=== PATIENT | male | born 1965 | race Caucasian/White ===

== ENCOUNTER 2022-01-14 00:16 | Day surgery (SDC) | payer BC, SELFPAY ==
[2022-01-06 09:35] VITALS: BMI 28.8
[2022-01-14 07:52] VITALS: BP 94/62; PULSE 49; RESP 16; TEMP 35.7; O2SAT 100; BMI 28.8
[2022-01-14] MEDS: LACTATED RINGERS 1,000 ML 150 ML IV CONT (08:00)
--- NOTE | 2022-01-14 08:07 | WPDANESEPPF ---
Anes - Initial Pre Proc Eval Procedure: Operation Date: 01/14/22 09:00 Proposed Procedures p Screening Colonoscopy - Kip Uribe MD Date/Time: 01/14/22 08:07 Surgeon: Kip Uribe MD Pre Op Diagnosis: family hx colon ca, hx colon polyps, neoplasm Patient Data Age: 56 Gender: M Height: 1.78 m Weight: 91 kg Last Vital Signs Temp 96.3 F L 01/14/22 07:52 Pulse 49 L 01/14/22 07:52 Resp 16 01/14/22 07:52 BP 94/62 L 01/14/22 07:52 Pulse Ox 100 01/14/22 07:52 Allergies Allergy/AdvReac Type Severity Reaction Status Date / Time No Known Allergies Allergy Verified 01/06/22 09:50 Home Medications Medication Instructions Recorded Confirmed Type No Home Medications 01/06/22 01/06/22 History Patient hx anesthesia problems: none Family hx anesthesia problems: none Results Review: All pre-operative results and documents have been reviewed as part of the pre-operative evaluation. [facility] Social History Social History Smoking status: Never smoker Alcohol intake: never Substance use: never Living arrangements: with family Spiritual care concerns: No Anes - Eval Final PreProcedure Day of Procedure 01/14/22 08:07 Patient weight: normal Heart: regular rate and rhythm Lungs: clear to auscultation Airway: Mallampati scale class II Neurological: alert and oriented Last oral intake: >/= 8 hours ASA classification: II Emergent: no Anesthetic plan: proceed Anesthesia type and monitoring: general GIVS and standard monitoring Results Review: All pre-operative results and documents have been reviewed as part of the pre-operative evaluation. Informed Consent: The patient's anesthetic plan and its attendant risks and benefits were discussed with the patient/family/POA. Questions were solicited and answers provided to the satisfaction of the patient/family/POA.
--- NOTE | 2022-01-14 08:16 | PM.HPGS ---
History of Present Illness History of Present Illness Consent: Risks, benefits, and alternatives have been discussed and questions answered. Patient agrees to proceed with procedure. Chief complaint: family hx colon ca, hx colon polyps, neoplasm Narrative: Rafaela Woodward is a 56 year old male with last colonoscopy 4-5 years ago, mother had colon cancer Review of Systems Constitutional: Constitutional: Denies headache(s) and Denies weakness Eyes: Eyes: Denies blurry vision ENT: Reports Normal hearing present, Denies headache(s) and Denies neck pain Cardiovascular: Cardiovascular: Denies chest pain and Denies dyspnea Respiratory: Respiratory: Denies dyspnea Gastrointestinal: Gastrointestinal: Reports no additional gastrointestinal complaints Genitourinary: Genitourinary: Denies dysuria Musculoskeletal: Musculoskeletal: Denies neck pain Integumentary/Breasts: Skin/Breast: Denies dry skin Neurologic: Reports Normal hearing present, Denies headache(s) and Denies weakness Psychiatric: Psychiatric: Denies anxiety Endocrine: Endocrine: Denies change in body appearance Hematologic/Lymphatic: Hematologic/Lymphatic: Denies easy bleeding Allergic/Immunologic: Allergic/Immunologic: Denies urticaria PMF Past Medical History Medical History (Updated 01/14/22 @ 08:17 by Kip Uribe MD) Family history of colon cancer in mother Social History Social History Smoking status: Never smoker Alcohol intake: never Substance use: never Living arrangements: with family Spiritual care concerns: No Meds Home Medications and Allergies Home Medications Medication Instructions Recorded Confirmed Type No Home Medications 01/06/22 01/06/22 History Allergies Allergy/AdvReac Type Severity Reaction Status Date / Time No Known Allergies Allergy Verified 01/06/22 09:50 Vital Signs Vital Signs - 24 hr 01/14/22 07:52 Temperature 96.3 F L Pulse Rate 49 L Respiratory Rate 16 Blood Pressure 94/62 L Pulse Oximetry 100 Exam Const: General: comfortable and no acute distress HENMT: General nose exam: Normal nares present Eyes: General: appearance normal, both eyes and all related structures Neck: Neck: no JVD Resp: Auscultation: clear to auscultation bilaterally Cardio: Rate: regular rate Rhythm: regular rhythm GI: Inspection: non-distended GI Palp: Yes Soft to palpation Skin: General skin exam: normal color Neuro: General: gait normal Speech: normal speech Extrem: General: normal to inspection Psych: Mental Status: mental status grossly normal Assessment and Plan Assessment and plan (1) Family history of colon cancer in mother: Code(s): Z80.0 - Family history of malignant neoplasm of digestive organs Status: Acute Assessment and Plan: colonoscopy
[2022-01-14 08:41] VITALS: BP 112/68; PULSE 52; RESP 12; O2SAT 97
[2022-01-14 08:51] VITALS: BP 108/81; PULSE 52; RESP 17; O2SAT 100
[2022-01-14 09:01] VITALS: BP 103/72; PULSE 50; RESP 17; O2SAT 100
== END 2022-01-14 09:12 | disposition home or self-care (01) ==
PROVIDERS: PCP Emergency Medicine; Visit Provider Internal Medicine Gastroenterology
PROC: 0DJD8ZZ Inspection of Lower Intestinal Tract, Via Natural or Artificial Opening Endoscopic (ICD-10-PCS; CPT 45378; principal; 2022-01-14 09:00)
DX: Z12.11 Encounter for screening for malignant neoplasm of colon (principal); D12.0 Benign neoplasm of cecum; D12.3 Benign neoplasm of transverse colon; Z80.0 Family history of malignant neoplasm of digestive organs; K64.8 Other hemorrhoids
CPT/HCPCS: 45385; 88305; J2704; J7120

== ENCOUNTER 2022-06-04 19:08 | Emergency (ER) | payer BC, SELFPAY ==
[2022-06-04 19:47] VITALS: BP 148/90; PULSE 60; RESP 16; TEMP 37; O2SAT 98
--- NOTE | 2022-06-04 19:50 | ED.WOUNDLAC ---
HPI - Wound/Laceration General Chief Complaint: Wound/Laceration Stated Complaint: middle left finger laceration Time Seen by Provider: 06/04/22 19:48 History of Present Illness HPI narrative: 56-year-old male presented emergency room for evaluation of laceration to his left middle finger. Patient states that he was using a mandolin and accidentally cut the backside of his middle finger. Tetanus is not up-to-date. Related Data Home Medications Medication Instructions Recorded Confirmed No Home Medications 01/06/22 01/06/22 Allergies Allergy/AdvReac Type Severity Reaction Status Date / Time No Known Allergies Allergy Verified 06/04/22 19:50 Review of Systems Review of Systems: CONSTITUTIONAL: Denies fever, chills, or sweats. EYES: Denies visual changes, redness, or discharge. ENT: Denies rhinorrhea, congestion, sore throat, or otalgia. CARDIOVASCULAR: Denies chest pain, palpitations, or edema. RESPIRATORY: Denies cough or dyspnea. GASTROINTESTINAL: Denies abdominal pain, nausea, vomiting, or diarrhea. GENITOURINARY: Denies dysuria or hematuria. SKIN: Reports laceration to left middle finger MUSCULOSKELETAL: Denies back pain, joint pain, or myalgia. NEUROLOGIC: Denies headache, numbness, dizziness, or weakness. PSYCHIATRIC: Denies anxiety or depression. [facility] Past Medical History Medical History Family history of colon cancer in mother Social History Social History Smoking status: Never smoker Alcohol intake: never Substance use: never Living arrangements: with family Spiritual care concerns: No Exam Narrative: GENERAL: Well-appearing, well-nourished, no physical limitations, and in no acute distress. HEAD: Normocephalic, atraumatic. EYES: Conjunctivae normal, PERRLA and EOMI. ENT: External nose normal, Nares clear, no rhinorrhea or epistaxis. Mucous membranes moist. Oropharynx without tonsillar hypertrophy exudate or other lesions. External ears normal, bilateral TMs normal bilaterally NECK: Supple. No meningeal signs. No adenopathy or masses. No carotid bruits or JVD CHEST: Clear to auscultation. No respiratory distress. No wheezes rales or rhonchi. No tenderness. HEART: Regular rate and rhythm. No murmur heard. Normal peripheral pulses. EXTREMITIES: Normal range of motion. No edema. No clubbing or cyanosis SKIN: Left middle finger: Small skin avulsion to the dorsal side of the middle phalanx left little finger. NEURO: No focal deficits. Alert and oriented x3. MAEW. CN's II-XI intact bilaterally, normal gait PSYCH: Cooperative. Normal mood and affect. Course Vital Signs Vital signs: Vital Signs Temperature 37.0 C 06/04/22 19:47 Pulse Rate 60 06/04/22 19:47 Respiratory Rate 16 06/04/22 19:47 Blood Pressure 148/90 H 06/04/22 19:47 Pulse Oximetry 98 06/04/22 19:47 Temperature 37.0 C 06/04/22 19:47 Pulse Rate 60 06/04/22 19:47 Respiratory Rate 16 06/04/22 19:47 Blood Pressure 148/90 H 06/04/22 19:47 Pulse Oximetry 98 06/04/22 19:47 Discharge Plan Discharge Clinical Impression: Avulsion of skin Patient Disposition: Home, Self-Care Condition: Stable Instructions: Antibiotic Form, Laceration (ED), Skin Avulsion (ED) Additional Instructions: Keep dressing on for 2 to 3 days. After that may wash your hands with soap and water. Avoid dirty water. Keep your wound clean and dry. Monitor for signs of infection which include redness, swelling, tenderness and purulent drainage. Prescriptions: No Action No Home Medications Follow-up/Referrals: Chris Flowers MD [Primary Care Provider] - Time of Disposition: 19:53
[2022-06-04] MEDS: CELLULOSE OXIDIZED 2 x 14 INCH 1 PKT XX (20:04)
[2022-06-04] MEDS: TETANUS,DIPHTHERIA,AC PERTUSSIS ADULT (0.5 ML) BOOSTRIX IM (20:04)
== END 2022-06-04 20:07 | disposition home or self-care (01) ==
LOC: ANHED 20:01
PROVIDERS: Emergency Provider Nurse Practitioner Family; PCP Emergency Medicine
DX: S61.213A Laceration without foreign body of left middle finger without damage to nail, initial encounter (principal); W26.8XXA Contact with other sharp object(s), not elsewhere classified, initial encounter; Z23 Encounter for immunization
CPT/HCPCS: 90471; 90715; 99282

== ENCOUNTER 2022-06-15 10:46 | Emergency (ER) | payer BC, SELFPAY ==
--- NOTE | ~2022-06-15 | XR_ITS ---
EXAM: XR finger 3rd LT min 2V DATE: 06/15/2022 12:14 HISTORY: wound left 3rd finger, redness,pain/swelling . COMPARISON: None available. FINDINGS: Normal mineralization. No fracture or dislocation. No lytic or blastic lesion. Minimal sca ttered degenerative change. No erosion or periosteal change. Punctate hyperdensities adjacent to the third DIP joint seen only in the bilateral oblique views. Apparent soft tissue defect just proximal t o the third DIP joint. Diffuse finger soft tissue swelling/edema. IMPRESSION: Possible radiopaque foreign bodies in the dorsal soft tissues of the left third finger in the region of apparent soft tissue defect, at the level of the third DIP joint. Reviewed, dictated and finalized at location K. [employer] IMPRESSION: Possible radiopaque foreign bodies in the dorsal soft tissues of th e left third finger in the region of apparent soft tissue defect, at the level of the third DIP joint.
[2022-06-15 11:00] VITALS: BP 136/96; PULSE 64; RESP 16; TEMP 35.8; O2SAT 100
[2022-06-15 11:02] VITALS: BP 136/96; PULSE 64; RESP 16; TEMP 35.8; O2SAT 100
--- NOTE | 2022-06-15 11:09 | ED.WOUNDLAC ---
HPI - Wound/Laceration General Chief Complaint: Wound/Laceration Stated Complaint: INJURED L HAND/INFECTION/DIZZINESS Time Seen by Provider: 06/15/22 11:05 Source: patient Mode of arrival: ambulatory Limitations: no limitations History of Present Illness HPI narrative: Rafaela is a 56-year-old male patient presenting to the clinic today with complaints of infected avulsion wound to the left dorsal 3rd finger. On June 04 he was using a mandolin to cut up some vegetables and cut his left 3rd finger. He was seen in the ER and tetanus shot was given and bleeding was controlled and dressing was applied. States he saw his PCP a few days later because he was having a lot of pain, redness, swelling in his finger and not being able to sleep. His PCP suspected that his finger was infected and placed him on Keflex and levofloxacin. He is here today because now he is feeling fatigue, dizziness, and states that the infection is not any better after finishing the Keflex and having 1 more days worth of the levofloxacin. He denies having any fever or chills. Related Data Home Medications Medication Instructions Recorded Confirmed cephalexin 500 mg capsule 500 mg PO DIRECTED 06/15/22 06/15/22 levofloxacin 500 mg tablet 500 mg PO DIRECTED 06/15/22 06/15/22 Allergies Allergy/AdvReac Type Severity Reaction Status Date / Time No Known Allergies Allergy Verified 06/15/22 11:00 Review of Systems Review of Systems: Pertinent positives per HPI. Patient denies any fever, chills, rash, headache, visual changes, dizziness, cough, runny nose, sore throat, shortness of breath, chest pain, palpitations, nausea, vomiting, diarrhea, constipation, abdominal pain, or any urinary issues. PMFSH Past Medical History Medical History Family history of colon cancer in mother Social History Social History Smoking status: Never smoker Alcohol intake: never Substance use: never Living arrangements: with family Spiritual care concerns: No Comments At the time of my signature, I reviewed and agree with the nursing past medical, surgical, social, and family history. There is no relevant family history pertinent to the patient complaint. Exam Narrative: General: Well-developed, well nourished, in no apparent distress Head: Normocephalic, atraumatic. Cardio: Regular rate and rhythm, s1 and s2 normal, no murmur appreciated. Resp: Clear to auscultation bilaterally, no rhonchi, rales, wheezing or rubs. Integumentary: [place], warm, and dry, swelling and redness to the entire left 3rd digit with a scabbed over avulsion wound draining brownish white discharge-avulsion measuring 1.4 x 1.6 cm, finger is erythemic and tender to palpation. Wound culture of drainage was obtained and sent to the lab Course Course Emergency Course: Portions of this record may have been created with voice recognition software. Level of Care: Express Care Visit Vital Signs Vital signs: Vital Signs Temperature 35.8 C L 06/15/22 11:00 Pulse Rate 64 06/15/22 11:00 Respiratory Rate 16 06/15/22 11:00 Blood Pressure 136/96 H 06/15/22 11:00 Pulse Oximetry 100 06/15/22 11:00 Temperature 35.8 C L 06/15/22 11:02 Pulse Rate 64 06/15/22 11:02 Respiratory Rate 16 06/15/22 11:02 Blood Pressure 136/96 H 06/15/22 11:02 Pulse Oximetry 100 06/15/22 11:02 Vital signs reviewed MDM - Wound/Laceration MDM Narrative Medical decision making narrative: At the time of visit patient is resting on the exam table. He is nontoxic appearing- He is afebrile and denies any chills. X-ray was performed to rule out osteomyelitis of the left 3rd finger and it is negative however the radiologist is unable to review the x-ray at this time so we will contact the patient when we have an official report. Will have the patient stop takin
== END 2022-06-15 11:46 | disposition home or self-care (01) ==
PROVIDERS: Emergency Provider Nurse Practitioner Family; PCP Emergency Medicine
DX: S61.203D Unspecified open wound of left middle finger without damage to nail, subsequent encounter (principal); L08.9 Local infection of the skin and subcutaneous tissue, unspecified; W27.4XXD Contact with kitchen utensil, subsequent encounter
CPT/HCPCS: 73140; 87070; 87075; 87076; 87185; 87205; 99213; G0463

== ENCOUNTER 2022-06-21 19:02 | Emergency (ER) | payer BC, SELFPAY ==
[2022-06-21 19:16] VITALS: BP 154/92; PULSE 65; RESP 16; TEMP 36.1; O2SAT 99
--- NOTE | 2022-06-21 19:16 | ED.SKABFB ---
HPI - Skin/Abscess/Foreign Bdy General Chief complaint: Skin/Abscess/Foreign Body Stated complaint: INFECTED FINGER Time Seen by Provider: 06/21/22 19:17 Source: patient Mode of arrival: ambulatory Limitations: no limitations History of Present Illness HPI narrative: 56-year-old male presents with complaint of infection to left middle finger. Initial injury was June 04 when he cut himself on a mandoline. He was seen in the ER and Surgicel was applied. He later saw his PCP for infection and was put on Levaquin and cephalexin. Infection did not improving he was seen at [facility] and was given Bactrim and Augmentin. He saw , plastic, I was told to continue antibiotics and follow-up on June 24. Patient is here today stating that infection is still not better. He states that he is fatigued, chills, lightheaded. States he almost passed out 2 days ago. He feels nauseated. He is unsure if symptoms are related to all of the antibiotics or if he is ?getting septic ?. All systems reviewed and negative except as noted above. Related Data Home Medications Medication Instructions Recorded Confirmed cephalexin 500 mg capsule 500 mg PO DIRECTED 06/15/22 06/15/22 levofloxacin 500 mg tablet 500 mg PO DIRECTED 06/15/22 06/15/22 Allergies Allergy/AdvReac Type Severity Reaction Status Date / Time No Known Allergies Allergy Verified 06/15/22 11:00 Review of Systems Review of Systems: CONSTITUTIONAL: Denies fever, chills, or sweats. EYES: Denies visual changes, redness, or discharge. ENT: Denies rhinorrhea, congestion, sore throat, or otalgia. CARDIOVASCULAR: Denies chest pain, palpitations, or edema. RESPIRATORY: Denies cough or dyspnea. GASTROINTESTINAL: Denies abdominal pain, nausea, vomiting, or diarrhea. GENITOURINARY: Denies dysuria or hematuria. SKIN: Reports redness, pain and swelling to left middle finger. MUSCULOSKELETAL: Denies back pain, joint pain, or myalgia. NEUROLOGIC: Denies headache, numbness, or weakness. PSYCHIATRIC: Denies anxiety or depression. All other systems reviewed are negative, except as documented in HPI. [facility] Past Medical History Medical History Family history of colon cancer in mother Social History Social History Smoking status: Never smoker Alcohol intake: never Substance use: never Living arrangements: with family Spiritual care concerns: No Comments At time of signature, agree with nursing past medical, surgical, social and family history. There is no relevant family history pertinent to the presenting complaint. Exam Narrative: GENERAL: This is a well-nourished, well-developed patient, in no apparent distress. HEAD: normocephalic, atraumatic. EYES: PERRL. Sclera clear/white. Vision is grossly intact. EARS: External ears normal NOSE: External nose normal NECK: Neck supple, non-tender without lymphadenopathy, masses or thyromegaly. CARDIOVASCULAR: Regular rate and rhythm without murmurs, gallops, or rubs. RESPIRATORY: Clear to auscultation. Breath sounds equal bilaterally. No wheezes, rales, or rhonchi. SKIN: warm, Dry, with no suspicious lesions or rash, good texture and turgor. Erythema and swelling to left middle finger, dorsal aspect. Scabbed wound to middle phalanx. No drainage. No fluctuance. Tender on palpation. NEURO: awake, alert, and oriented to person, place and time. There were no obvious focal neurologic abnormalities. EXTREMITIES: No joint tenderness, effusion, or edema noted. Course Course Level of Care: Express Care Visit Vital Signs Vital signs: Vital Signs Temperature 36.1 C L 06/21/22 19:16 Pulse Rate 65 06/21/22 19:16 Respiratory Rate 16 06/21/22 19:16 Blood Pressure 154/92 H 06/21/22 19:16 Pulse Oximetry 99 06/21/22 19:16 Temperature 36.1 C L 06/21/22 19:16 Pulse Rate 65
== END 2022-06-21 19:40 | disposition short-term general hospital (02) ==
PROVIDERS: Emergency Provider Nurse Practitioner Family; PCP Emergency Medicine
DX: S61.203D Unspecified open wound of left middle finger without damage to nail, subsequent encounter (principal); L08.9 Local infection of the skin and subcutaneous tissue, unspecified; W27.4XXD Contact with kitchen utensil, subsequent encounter
CPT/HCPCS: 99212; G0463

== ENCOUNTER 2022-06-21 20:27 | Emergency (ER) | payer BC, SELFPAY ==
--- NOTE | ~2022-06-21 | XR_ITS ---
PA, oblique, and lateral views of the left third finger CLINICAL HISTORY: Infection FINDINGS: No fracture or dislocation seen. Osseous alignment is unremarkable. Joint spaces are preser nilo. Soft tissues are unremarkable. IMPRESSION: Unremarkable exam. Reviewed, dictated and finalized at location M. [employer] IMPRESSION: Unremarkable exam.
[2022-06-21 20:39] VITALS: BP 133/72; PULSE 64; RESP 18; TEMP 36.8; O2SAT 99
[2022-06-22 00:33] VITALS: BP 126/84; PULSE 53; RESP 19; O2SAT 100
--- NOTE | 2022-06-22 01:12 | ED.SKABFB ---
HPI - Skin/Abscess/Foreign Bdy General Chief complaint: Skin/Abscess/Foreign Body Stated complaint: finger infection Time Seen by Provider: 06/22/22 01:01 History of Present Illness HPI narrative: 56-year-old male here for evaluation of swelling, redness and pain to his left middle digit. Started with a laceration from a mandolin about 2 weeks ago. Was seen here, Surgicel was placed and he was discharged home to follow-up with his primary. He followed up with his primary and had concerns over developing infection and was placed on Keflex. Redness and swelling did not improve and so he presented to an urgent care facility, where he was then placed on Bactrim and Augmentin. Saw Dr. Cardenas a week ago, reported the redness and swelling improved and he was set to follow-up again in 2 days from now. Presents today due to continued redness and swelling to the skin surrounding the laceration. He denies any fevers but does report chills, lightheadedness and feeling systemically ill. Sent from urgent care. Related Data Home Medications Medication Instructions Recorded Confirmed cephalexin 500 mg capsule 500 mg PO DIRECTED 06/15/22 06/15/22 levofloxacin 500 mg tablet 500 mg PO DIRECTED 06/15/22 06/15/22 Allergies Allergy/AdvReac Type Severity Reaction Status Date / Time No Known Allergies Allergy Verified 06/22/22 00:32 Review of Systems Review of Systems: Gen: Denies fevers or chills Eyes: Denies eye pain or visual change ENT: Denies congestion Respiratory: Denies shortness of breath or cough CV: Denies chest pain or palpitations GI: Denies abdominal pain nausea, emesis or diarrhea : denies burning, urgency, frequency or hematuria Musculoskeletal: Reports pain to left middle finger Neuro: Denies numbness, tingling, weakness or focal weakness Skin: Reports redness to left middle finger Except as documented, all other systems reviewed and negative [facility] Past Medical History Medical History Family history of colon cancer in mother Social History Social History Smoking status: Never smoker Alcohol intake: never Substance use: never Living arrangements: with family Spiritual care concerns: No Exam Narrative: Gen: Alert, oriented, no acute disease Eyes: EOMI, no icterus Pulm: Respirations even and unlabored, symmetric thorax expansion, no audible stridor or visible cyanosis CV: Regular rate per telemetry GI: No distension, no voluntary/involuntary guarding Neuro: AOx4, moves all extremities without apparent difficulty or weakness, follows commands MSK: Left third digit is slightly swollen. Held in extension, reports pain and tightness with active flexion of the digit. No tenderness to palpation along the flexor tendons. Skin: Patient has a 1.5 centimeter triangular-shaped area of skin breakdown to the dorsal aspect of the left third digit just distal to the PIP that has scabbed over, there is a small area of white drainage. There is pink skin surrounding the skin breakdown that is not warm or tender to palpation. Psych: Normal mood/affect, insight/judgement good, adequate fund of knowledge, recent/remote memory intact Course Vital Signs Vital signs: Vital Signs Temperature 98.2 F 06/21/22 20:39 Pulse Rate 64 06/21/22 20:39 Respiratory Rate 18 06/21/22 20:39 Blood Pressure 133/72 06/21/22 20:39 Pulse Oximetry 99 06/21/22 20:39 Oxygen Delivery Room Air 06/21/22 20:39 Temperature 98.2 F 06/21/22 20:39 Pulse Rate 53 L 06/22/22 00:33 Respiratory Rate 19 06/22/22 00:33 Blood Pressure 126/84 06/22/22 00:33 Pulse Oximetry 100 06/22/22 00:33 Oxygen Delivery Room Air 06/21/22 20:39 MDM - Skin/Abscess/Foreign Bdy MDM Narrative Medical decision making narrative: 56-year-old male here for evaluation of continued concerns over possible infecti
[2022-06-22 01:35] LABS: Basophils Percent Auto 0.6 % (0.2-1.2); Eosinophils Absolute Auto 0.1 K/mm3 (0-0.3); Hemoglobin 14.7 g/dL (14.0-18.0); Immature Granulocyte Absolute 0.02 K/mm3 (0.00-0.031); Immature Granulocyte Percent A 0.3 % (0-0.5); Lymphocytes Absolute Auto 3.19 K/mm3 (0.9-3.2); Lymphocytes Percent Auto 49.3 % (18.3-44.2); Mean Corpuscular HGB Conc 35.9 g/dl (32-36); Mean Corpuscular Hemoglobin 33.7 pg (26-34); Mean Platelet Volume 9.5 fl (7.4-10.4); Monocytes Absolute Auto 0.5 K/mm3 (0.1-0.6); Neutrophils Absolute Auto 2.6 K/mm3 (1.3-6.7); Neutrophils Percent Auto 40.8 % (45.5-73.1); Platelet Count Result 220 k/mm3 (150-375); Red Blood Count 4.36 M/mm3 (4.6-6.20); Red Cell Distribution Width 11.6 % (11.5-14.5); White Blood Count 6.5 K/mm3 (4.5-10.0)
[2022-06-22 01:45] LABS: Lactic Acid Reflex 1.8 mmol/L (0.7-2.0)
[2022-06-22 01:47] LABS: Alanine Aminotransferase 21 U/L (6-50); Albumin Level 4.1 g/dL (3.5-5.1); Alkaline Phosphatase 71 U/L (38-126); Anion Gap 7 mmol/L (8-16); Aspartate Amino Transferase 23 U/L (17-59); Bilirubin,Total 0.6 mg/dL (0.2-1.3); Blood Urea Nitrogen 14 mg/dL (9-20); CRP < 0.5 mg/dL (<1.0); Calcium 8.7 mg/dL (8.4-10.2); Carbon Dioxide 24 mmol/L (22-30); Chloride 102 mmol/L (98-107); Estimated CRCL calculation 135 ml/min; Estimated Glomerular Filt Rate > 60; Glucose 259 mg/dL (65-110); Potassium 4.1 mmol/L (3.4-5.0); Sodium 133 mmol/L (137-145)
[2022-06-22 02:05] LABS: Erythrocyte Sedimentation Rate 14 mm/hr (0-20)
== END 2022-06-22 02:30 | disposition home or self-care (01) ==
PROVIDERS: Emergency Provider Physician Assistant; PCP Emergency Medicine
DX: S61.213D Laceration without foreign body of left middle finger without damage to nail, subsequent encounter (principal); W27.4XXD Contact with kitchen utensil, subsequent encounter
CPT/HCPCS: 36415; 73140; 80053; 83605; 85025; 85652; 86140; 99283

== ENCOUNTER 2024-01-26 13:25 | Emergency (ER) | payer OTHER, SELFPAY ==
[2024-01-26 13:31] VITALS: BP 121/79; PULSE 77; RESP 16; TEMP 36.3; O2SAT 99
--- NOTE | 2024-01-26 13:31 | ED.URI ---
HPI - URI/Sore Throat General Chief Complaint: Upper Respiratory Infection Stated Complaint: SORE THROAT/TIRED/HEADACHE/EARS Time Seen by Provider: 01/26/24 13:32 Source: patient Mode of arrival: ambulatory Limitations: no limitations History of Present Illness HPI Narrative: Rafaela is a 58-year-old male patient presenting to the clinic today with complaints sore throat, nasal congestion, fatigue, headache, and right ear pain x4 days. He reports he has done 2 at home COVID test and they were negative. He denies any known fever or chills. States he does have some body aches. Denies chest pain or shortness of breath MD elicited complaint: sore throat, nasal congestion and other (Headache, right ear pain) Related Data Home Medications Medication Instructions Recorded Confirmed No Home Medications 01/26/24 01/26/24 Allergies Allergy/AdvReac Type Severity Reaction Status Date / Time No Known Allergies Allergy Verified 01/26/24 13:41 Review of Systems Review of Systems: Pertinent positives per HPI. Patient denies any fever, chills, rash, visual changes, dizziness, shortness of breath, chest pain, palpitations, nausea, vomiting, diarrhea, constipation, abdominal pain, or any urinary issues. [facility] Past Medical History Medical History Family history of colon cancer in mother Social History Social History Smoking status: Never smoker Alcohol intake: never Substance use: never Living arrangements: with family Spiritual care concerns: No Comments At the time of my signature, I reviewed and agree with the nursing past medical, surgical, social, and family history. There is no relevant family history pertinent to the patient complaint. Exam Narrative: General: Well-developed, well nourished, in no apparent distress Head: Normocephalic, atraumatic Eyes: Pupils equally round and reactive to light bilaterally, EOM intact, sclera and conjunctive clear, no discharge, lids normal Ears: TMs intact and clear, ear canals clear, no drainage, grossly hearing normal. Nose: Nares patent, no discharge, no inflammation, no sinus tenderness. Mouth: Oral pharynx without lesions or masses, good dentition, MMM. Neck: Supple, trachea midline, no enlargement of anterior or posterior cervical nodes, no thyroid masses or goiter palpable. Cardio: Regular rate and rhythm, s1 and s2 normal, no murmur appreciated. Resp: Clear to auscultation bilaterally, no rhonchi, rales, wheezing or rubs Course Course Emergency Course: Portions of this record may have been created with voice recognition software. Level of Care: Express Care Visit Vital Signs Vital signs: Vital Signs Temperature 36.3 C L 01/26/24 13:31 Pulse Rate 77 01/26/24 13:31 Respiratory Rate 16 01/26/24 13:31 Blood Pressure 121/79 01/26/24 13:31 Pulse Oximetry 99 01/26/24 13:31 Temperature 36.3 C L 01/26/24 13:31 Pulse Rate 77 01/26/24 13:31 Respiratory Rate 16 01/26/24 13:31 Blood Pressure 121/79 01/26/24 13:31 Pulse Oximetry 99 01/26/24 13:31 Vital signs reviewed MDM - URI/Sore Throat MDM Narrative Medical decision making narrative: At the time of visit patient is resting comfortably on the exam table. Patient appears to be nontoxic. Labs: COVID, influenza, and strep test was performed and negative in the clinic today. We will send strep for culture. Plan: I suspect patient has URI/pharyngitis/right otalgia/viral syndrome. Supportive measures were discussed with the patient and they voiced understanding discharge instructions and agrees to treatment plan. Return precautions reviewed Differential Diagnosis Differential diagnosis: Likely upper respiratory infection, otitis media, sinusitis, viral infection, bronchitis, influenza, pharyngitis and other (COVID) Lab Data Labs: Lab Res
[2024-01-26 13:48] LABS: EDSTREPNEGPOS1 Negative (Negative)
[2024-01-26 13:54] LABS: EDCOVIDSCREEN Negative (Negative)
[2024-01-26 15:48] LABS: EDINFLUASCREEN Negative (Negative); EDINFLUBSCREEN Negative (Negative)
== END 2024-01-26 14:05 | disposition home or self-care (01) ==
PROVIDERS: Emergency Provider Nurse Practitioner Family; PCP Emergency Medicine
DX: B34.9 Viral infection, unspecified (principal); J06.9 Acute upper respiratory infection, unspecified; J02.9 Acute pharyngitis, unspecified; Z20.822 Contact with and (suspected) exposure to COVID-19
CPT/HCPCS: 87081; 87635; 87804; 87880; 99213; G0463